=== PATIENT | female | born 1965 | race Caucasian/White ===

== ENCOUNTER 2017-04-25 08:32 | Emergency (ER) | payer BC ==
[2017-04-25 08:38] VITALS: TEMP 98.1
--- NOTE | 2017-04-25 08:53 | ED ---
General Adult HPI - General Chief complaint: Abdominal Pain Stated complaint: ABDOMINAL PAIN, VOMITING, DIARRHEA Time Seen by Provider: 04/25/17 08:40 Source: patient, RN notes reviewed Mode of arrival: ambulatory Limitations: no limitations - History of Present Illness Initial comments: 51 yo female presents to the emergency department with a chief complaint nausea vomiting and diarrhea. Patient has been sick since yesterday. Patient states that this started after lunch yesterday. Patient states she has a steady pain in her lower abdomen. Patient states that her pain was so that'll cause her to vomit. Patient states she took twice this morning. Patient denies any changes in bladder habits. Patient states that she just does not know is going on. She denies any abdominal surgeries signs of infection. The patient was concerned due to her symptoms so she thought that she should be evaluated. Patient denies any recent fever, chills, shortness of breath, chest pain, back pain, numbness or tingling, dysuria or hematuria, constipation, headaches or visual changes, or any other current symptoms. - Related Data Home Medications Medication Instructions Recorded Confirmed Cetirizine HCl [Zyrtec] 10 mg PO DAILY 04/25/17 04/25/17 Previous Rx's Medication Instructions Recorded Hydrocodone/Acetaminophen [[place] 1 each PO Q6HR PRN #20 tab 04/25/17 5-325] Ketorolac [Toradol] 10 mg PO Q6HR #20 tab 04/25/17 Ondansetron Odt [Zofran ODT] 4 mg PO Q8HR PRN #20 tab 04/25/17 Tamsulosin [Flomax] 0.4 mg PO DAILY #5 cap 04/25/17 Allergies Allergy/AdvReac Type Severity Reaction Status Date / Time No Known Allergies Allergy Verified 04/25/17 09:14 Review of Systems ROS Statement: Those systems with pertinent positive or pertinent negative responses have been documented in the HPI. ROS Other: All systems not noted in ROS Statement are negative. Past Medical History Past Medical History: No Reported History History of Any Multi-Drug Resistant Organisms: None Reported Past Surgical History: Section Past Psychological History: No Psychological Hx Reported Smoking Status: Never smoker Past Alcohol Use History: None Reported Past Drug Use History: None Reported General Exam - General Exam Comments Initial Comments: General: The patient is awake and alert, in mild distress, and does not appear acutely ill. Eye: Pupils are equal, round and reactive to light, extra-ocular movements are intact; there is normal conjunctiva bilaterally. No signs of icterus. Ears, nose, mouth and throat: There are moist mucous membranes and no oral lesions. Neck: The neck is supple, there is no tenderness. Cardiovascular: There is a regular rate and rhythm. No murmur, rub or gallop is appreciated. Respiratory: Lungs are clear to auscultation, respirations are non-labored, breath sounds are equal. No wheezes, stridor, rales, or rhonchi. Gastrointestinal: Soft, non-distended, non-tender abdomen without masses or organomegaly noted. There is no rebound or guarding present. No CVA tenderness. Bowel sounds are unremarkable. Back: There is no tenderness to palpation in the midline. There is no obvious deformity. No rashes noted. Musculoskeletal: Normal ROM, no tenderness, There is no pedal edema. There is no calf tenderness or swelling. Sensation intact. Pulses equal bilaterally 2+. Neurological: CN II-XII intact, There are no obvious motor or sensory deficits. Coordination appears grossly intact. Speech is normal. Skin: Skin is warm and dry and no rashes or lesions are noted. Psychiatric: Cooperative, appropriate mood & affect, normal judgment. Limitations: no limitations Course Vital Signs 04/25/17 04/25/17 04/25/17 08:36 08:50 09:29 Temperature 98.1 F Pulse Rate 97 Respiratory 24 Rate Blood Pressure 231/92 200/86 O2 Sat by Pulse 100 Oximetry 04/25/17 04/25/17 04/25/17 10:21 11:20 11:47 Temperature Pulse Rate 96 110 H 89 Respiratory 16 16 16 Rate Blood Pressure 197/84 224/100 178/79 O2 Sat by Pulse 98 99 99 Oximetry Medical Decision Making - Medical Decision Making 51-year-old female presents emergency room chief complaint abdominal pain nausea vomiting and diarrhea. At this time lab work and imaging has been reviewed. Patient does appear to have a bright ureteral calculus. It is appear to be some obstruction of this. Patient is stable. Lactic is elevated but this is most likely due to the nausea vomiting and the patient. Otherwise she does appear to be hydrated. At this time we did give her pain medication. At this time we discussed close follow-up with urology. We did discuss return parameters we discussed this could get worse and not better and she may need to be admitted. We did discuss all the patient's questions. She stated that she understood and she is in agreement plan. She'll be discharged. - Lab Data Result diagrams: 04/25/17 09:12 04/25/17 09:12 Lab Results 04/25/17 04/25/17 04/25/17 Range/Units 09:12 09:12 09:12 WBC 5.8 (3.8-10.6) k/uL RBC 4.93 (3.80-5.40) m/uL Hgb 14.6 (11.4-16.0) gm/dL Hct 44.5 (34.0-46.0) % MCV 90.3 (80.0-100.0) fL MCH 29.6 (25.0-35.0) pg MCHC 32.8 (31.0-37.0) g/dL RDW 13.4 (11.5-15.5) % Plt Count 165 (150-450) k/uL Neutrophils % 79 % Lymphocytes % 15 % Monocytes % 5 % Eosinophils % 1 % Basophils % 1 % Neutrophils # 4.6 (1.3-7.7) k/uL Lymphocytes # 0.8 L (1.0-4.8) k/uL Monocytes # 0.3 (0-1.0) k/uL Eosinophils # 0.1 (0-0.7) k/uL Basophils # 0.0 (0-0.2) k/uL Sodium 144 (137-145) mmol/L Potassium 3.8 (3.5-5.1) mmol/L Chloride 109 H (98-107) mmol/L Carbon Dioxide 22 (22-30) mmol/L Anion Gap 13 mmol/L BUN 13 (7-17) mg/dL Creatinine 0.98 (0.52-1.04) mg/dL Est GFR (MDRD) Af Amer >60 (>60 ml/min/1.73 sqM) Est GFR (MDRD) Non-Af 60 (>60 ml/min/1.73 sqM) Glucose 155 H (74-99) mg/dL Plasma Lactic Acid Ru 2.3 H* (0.7-2.0) mmol/L Calcium 9.3 (8.4-10.2) mg/dL Total Bilirubin 0.8 (0.2-1.3) mg/dL AST 22 (14-36) U/L ALT 28 (9-52) U/L Alkaline Phosphatase 82 (38-126) U/L Total Protein 7.6 (6.3-8.2) g/dL Albumin 4.3 (3.5-5.0) g/dL Amylase 43 (30-110) U/L Lipase 68 (23-300) U/L Urine Color Urine Appearance (Clear) Urine pH (5.0-8.0) Ur Specific [place] (1.001-1.035) Urine Protein (Negative) Urine Glucose (UA) (Negative) Urine Ketones (Negative) Urine Blood (Negative) Urine Nitrite (Negative) Urine Bilirubin (Negative) Urine Urobilinogen (<2.0) mg/dL Ur Leukocyte Esterase (Negative) Urine RBC (0-5) /hpf Urine WBC (0-5) /hpf Ur Squamous Epith Cells (0-4) /hpf Urine Mucus (None) /hpf 04/25/17 Range/Units 10:15 WBC (3.8-10.6) k/uL RBC (3.80-5.40) m/uL Hgb (11.4-16.0) gm/dL Hct (34.0-46.0) % MCV (80.0-100.0) fL MCH (25.0-35.0) pg MCHC (31.0-37.0) g/dL RDW (11.5-15.5) % Plt Count (150-450) k/uL Neutrophils % % Lymphocytes % % Monocytes % % Eosinophils % % Basophils % % Neutrophils # (1.3-7.7) k/uL Lymphocytes # (1.0-4.8) k/uL Monocytes # (0-1.0) k/uL Eosinophils # (0-0.7) k/uL Basophils # (0-0.2) k/uL Sodium (137-145) mmol/L Potassium (3.5-5.1) mmol/L Chloride (98-107) mmol/L Carbon Dioxide (22-30) mmol/L Anion Gap mmol/L BUN (7-17) mg/dL Creatinine (0.52-1.04) mg/dL Est GFR (MDRD) Af Amer (>60 ml/min/1.73 sqM) Est GFR (MDRD) Non-Af (>60 ml/min/1.73 sqM) Glucose (74-99) mg/dL Plasma Lactic Acid Ru (0.7-2.0) mmol/L Calcium (8.4-10.2) mg/dL Total Bilirubin (0.2-1.3) mg/dL AST (14-36) U/L ALT (9-52) U/L Alkaline Phosphatase (38-126) U/L Total Protein (6.3-8.2) g/dL Albumin (3.5-5.0) g/dL Amylase (30-110) U/L Lipase (23-300) U/L Urine Color Yellow Urine Appearance Clear (Clear) Urine pH 7.5 (5.0-8.0) Ur Specific [place] 1.048 H (1.001-1.035) Urine Protein Trace H (Negative) Urine Glucose (UA) Trace H (Negative) Urine Ketones Negative (Negative) Urine Blood Moderate H (Negative) Urine Nitrite Negative (Negative) Urine Bilirubin Negative (Negative) Urine Urobilinogen <2.0 (<2.0) mg/dL Ur Leukocyte Esterase Trace H (Negative) Urine RBC 163 H (0-5) /hpf Urine WBC 2 (0-5) /hpf Ur Squamous Epith Cells 9 H (0-4) /hpf Urine Mucus Rare H (None) /hpf - Radiology Data Radiology results: report reviewed, image reviewed Disposition Clinical Impression: Ureteral calculus Disposition: HOME SELF-CARE Condition: Stable Instructions: Kidney Stones (ED) Additional Instructions: Please use medication as discussed. Please follow up with family doctor if symptoms have not improved over the next two days. Please return to the emergency room if your symptoms increase or worsen or for any other concerns. Prescriptions: Hydrocodone/Acetaminophen [[place] 5-325] 1 each PO Q6HR PRN #20 tab PRN Reason: Pain Ketorolac [Toradol] 10 mg PO Q6HR #20 tab Ondansetron Odt [Zofran ODT] 4 mg PO Q8HR PRN #20 tab PRN Reason: Nausea Tamsulosin [Flomax] 0.4 mg PO DAILY #5 cap Referrals: Naresh Mcgowan MD [STAFF PHYSICIAN] - 1-2 days Time of Disposition: 12:16
[2017-04-25] MEDS ORDERED: METOCLOPRAMIDE 5 MG/ML 2 ML VIAL IVP STA (08:54)
[2017-04-25] MEDS ORDERED: DICYCLOMINE 10 MG/ML 2 ML AMP IM STA (08:54)
[2017-04-25] MEDS ORDERED: RX INFO: IV CONTRAST WAS GIVEN 1 EACH MISC MISCELLANE PRN (08:54)
[2017-04-25] MEDS ORDERED: HYDROmorphone 1 MG/ML 1 ML SYRINGE IVP STA ×3 (08:54→11:22)
[2017-04-25] MEDS ORDERED: SODIUM CHLORIDE 0.9% 1,000 ML IV STA (08:54)
[2017-04-25 09:33] LABS: Basophils % (A) 1 %; CH 29.7; CHCM 33.1; Eosinophils # (A) 0.1 k/uL (0-0.7); Eosinophils % (A) 1 %; HCT 44.5 % (34.0-46.0); HDW 2.57; HGB 14.6 gm/dL (11.4-16.0); Luc # (Auto) 0.05; Luc % (Auto) 1; Lymphocytes # (A) 0.8 k/uL (1.0-4.8); Lymphocytes % (A) 15 %; MCH 29.6 pg (25.0-35.0); MCHC 32.8 g/dL (31.0-37.0); MCV 90.3 fL (80.0-100.0); Mean Platelet Volume 8.2; Monocytes # (A) 0.3 k/uL (0-1.0); Monocytes % (A) 5 %; Neutrophils # (A) 4.6 k/uL (1.3-7.7); Neutrophils % (A) 79 %; RBC 4.93 m/uL (3.80-5.40); RDW 13.4 % (11.5-15.5); WBC 5.8 k/uL (3.8-10.6); WBC (Perox) 5.86
[2017-04-25 09:42] LABS: Anion Gap 13 mmol/L; Blood Urea Nitrogen 13 mg/dL (7-17); Carbon Dioxide 22 mmol/L (22-30); Chloride 109 mmol/L (98-107); Glucose 155 mg/dL (74-99); Potassium 3.8 mmol/L (3.5-5.1); Sodium 144 mmol/L (137-145)
[2017-04-25 09:43] LABS: ALT 28 U/L (9-52); AST 22 U/L (14-36); Alkaline Phosphatase 82 U/L (38-126); Amylase 43 U/L (30-110); Calcium 9.3 mg/dL (8.4-10.2); Non-African American GFR(MDRD) 60 (>60 ml/min/1.73 sqM); Total Bilirubin 0.8 mg/dL (0.2-1.3); Total Protein 7.6 g/dL (6.3-8.2)
[2017-04-25 10:23] VITALS: RESP 16
--- NOTE | 2017-04-25 10:27 | CT ---
EXAMINATION TYPE: CT abdomen pelvis w con DATE OF EXAM: 04/25/2017 COMPARISON: NONE HISTORY: 51-year-old female complains of RLQ pain, nausea, vomiting, and diarrhea. TECHNIQUE: Contiguous axial scanning of the abdomen and pelvis following administration of 100 ml Omn ipaque 300 IV contrast. Delayed images through the kidneys and coronal/sagittal reconstructions perf ormed. CT DLP: 1468.8 mGycm Automated exposure control for dose reduction was used. FINDINGS: Heart is normal size without pericardial effusion. Nonspecific 4 mm left basilar pulmonary nodule. No pleural effusion. Small hiatal hernia. Small amount of focal fat along the anterior falciform ligament and a 1.8 cm lobulated hypodense lesi on in the central inferior right liver lobe most suggestive of a cyst. The portal venous system appea rs patent. No biliary ductal dilatation. Adrenal glands, left kidney, spleen, and pancreas appear within normal limits. There is mild right-sided hydronephrosis with delayed excretion of contrast and mild hydroureter and a 5 mm calculus at the distal right ureter just proximal to the UVJ. Mild surrounding tracking edema and inflammation along the right ureter. No dilated small bowel, free fluid, or free air. No mesenteric or retroperitoneal adenopathy. Normal appendix. No significant stool burden. Minimal diverticular change along the proximal sigmoid. No pericolonic inflammatory change. Bladder nondistended. There is a intramural and subserosal focal fibroid along the anterior uterine body measuring 2.2 cm. Uterus is anteverted. Both ovaries are visualized. No abnormal fluid collection in the pelvis or pelv ic lymphadenopathy. Bones: Mild degenerative disc disease L5-S1. No osseous destructive process. IMPRESSION: 1. A 5 MM DISTAL RIGHT URETERAL CALCULUS NEAR THE UVJ WITH MILD HYDRONEPHROSIS. SIGNIFICANT OBSTRUCTI VE UROPATHY IS SUGGESTED GIVEN THE LACK OF CONTRAST EXCRETION FROM THE RIGHT KIDNEY ON THE DELAYED IM AGES. 2. MINIMAL DIVERTICULOSIS ALONG THE PROXIMAL SIGMOID COLON. 3. A 2.2 CM ANTERIOR UTERINE FIBROID.
[2017-04-25] MEDS ORDERED: KETOROLAC 30 MG/ML 1 ML VIAL IVP STA (10:32)
[2017-04-25 10:59] LABS: Appearance,Urine Clear (Clear); Bilirubin,Urine Negative (Negative); Glucose,Urine (UA) Trace (Negative); Ketones,Urine Negative (Negative); Leukocyte Esterase,Urine Trace (Negative); Mucus,Urine Rare /hpf; Nitrite,Urine Negative (Negative); PH, Urine 7.5 (5.0-8.0); Particle Count 1643; Protein,Urine Trace (Negative); RBC,Urine 163 /hpf (0-5); Specific Gravity,Urine 1.048 (1.001-1.035); Squamous Epithelial Cell,Urine 9 /hpf (0-4); UA Billing (MACRO vs. MICRO) MICRO; Urobilinogen,Urine <2.0 mg/dL (<2.0); WBC,Urine 2 /hpf (0-5)
[2017-04-25] MEDS ORDERED: ONDANSETRON 4 MG/2 ML VIAL IVP STA (11:22)
[2017-04-25 11:47] VITALS: BP 178/79; PULSE 89
== END 2017-04-25 12:17 | disposition home or self-care (01) ==
LOC: EC 08:32
DX: N20.1 Calculus of ureter (principal); Z79.899 Other long term (current) drug therapy
CPT/HCPCS: 99284 ×2; 96374 ×2; 96375 ×4; 96376 ×3; 96361 ×2; 96372 ×2; 36415; 80053; 82150; 83605; 83690; 85025; 81001; 87040; 87086; 74177; J0500; J2765; J2405; J1885; J1170; Q9967

== ENCOUNTER → 2017-04-26 | Outpatient (CLI) | payer BC ==
--- NOTE | 2017-04-26 10:11 | XR ---
EXAMINATION TYPE: XR abdomen 1V DATE OF EXAM: 04/26/2017 COMPARISON: 04/25/2017 HISTORY: Right-sided kidney stone TECHNIQUE: One view abdominal series FINDINGS: The osseous structures are intact. The bowel gas pattern is nonspecific. Lung bases are clear. There remains a calcification along the right hemipelvis which could be within the right UVJ or bladd er. Measures approximately 4 mm. No additional suspicious calcifications. IMPRESSION: 1. Right pelvic calcification likely near the right UVJ and corresponding to the CT abnormality.
== END | disposition home or self-care (01) ==
LOC: RADXRMAIN 09:51
PROVIDERS: ATTEND Urology
DX: N28.89 Other specified disorders of kidney and ureter (principal)
CPT/HCPCS: 74000

== ENCOUNTER 2019-07-22 09:16 | Day surgery (SDC) | payer BC ==
[2019-07-21 08:42] VITALS: BMI 35.5
[~2019-07-22 09:16] MED LIST: LACTATED RINGERS 1,000 ML IV SCH; LIDOCAINE 1% 20 ML VIAL (10MG/ML) FOR IV START INTRADERMA PRN
[2019-07-22 09:38] VITALS: TEMP 97.9
[2019-07-22] MEDS ORDERED: PROPOFOL 10 MG/ML 20 ML VIAL IV ONE (10:10)
--- NOTE | 2019-07-22 10:30 | P.PCN ---
Date of Procedure: 07/22/19 Procedure(s) Performed: BRIEF HISTORY: Patient is a 53-year-old pleasant female scheduled for an elective colonoscopy as a part of screening for colon rectal neoplasia. PROCEDURE PERFORMED: Colonoscopy. PREOPERATIVE DIAGNOSIS: Screening for colon cancer. IV sedation per Anesthesia. PROCEDURE: After informed consent was obtained, the patient, was brought into the endoscopy unit. IV sedation was administered by Anesthesia under continuous monitoring. Digital rectal examination was normal. Initially the Olympus CF-160 flexible video colonoscope was then inserted in the rectum, gradually advanced into the cecum without any difficulty. Careful examination was performed as the scope was gradually being withdrawn. Ileocecal valve and the appendiceal orifice were visualized and appeared normal. Prep was excellent. Mucosa of the cecum, ascending colon, transverse colon, descending colon, sigmoid colon, and rectum appeared normal. Retroflexion was performed in the rectum and no lesions were seen. The patient tolerated the procedure well. IMPRESSION: Normal-appearing colon from rectum to cecum with no emesis of colorectal neoplasia . RECOMMENDATIONS: Findings of this examination were discussed with the patient as well as a family. She was advised to have a repeat scanning colonoscopy in 10 years.
[2019-07-22 10:35] VITALS: RESP 16
[2019-07-22 10:46] VITALS: BP 141/74; PULSE 77
== END 2019-07-22 11:14 | disposition home or self-care (01) ==
LOC: ORWHC2ENDO 09:16
PROVIDERS: ATTEND Internal Medicine Gastroenterology
DX: Z12.11 Encounter for screening for malignant neoplasm of colon (principal); I10 Essential (primary) hypertension; Z79.899 Other long term (current) drug therapy; Z87.442 Personal history of urinary calculi
CPT/HCPCS: J2704; G0121

== ENCOUNTER → 2020-03-01 | Outpatient (CLI) | payer BC ==
--- NOTE | 2020-03-03 09:21 | MM ---
Reason for exam: screening (asymptomatic). Last mammogram was performed 1 year and 5 months ago. History: Patient is postmenopausal. Family history of breast cancer in maternal grandmother. Took hormonal contraceptives for 2 years. Physical Findings: A clinical breast exam by your physician is recommended on an annual basis and results should be correlated with mammographic findings. MG Screening Mammo w CAD Bilateral CC and MLO view(s) were taken. Prior study comparison: September 29, 2018, right breast MG work up mamm w CAD RT. September 29, 2018, bilateral MG screening mammo w CAD. There are scattered fibroglandular densities. No significant changes when compared with prior studies. ASSESSMENT: Benign, BI-RAD 2 RECOMMENDATION: Routine screening mammogram of both breasts in 6 months.
== END | disposition home or self-care (01) ==
LOC: RADMAMWWP 12:46
PROVIDERS: ATTEND Internal Medicine
DX: Z12.31 Encounter for screening mammogram for malignant neoplasm of breast (principal)
CPT/HCPCS: 77067

== ENCOUNTER → 2021-03-10 | Outpatient (CLI) | payer BC ==
--- NOTE | 2021-03-14 10:08 | MM ---
Reason for exam: screening (asymptomatic). Last mammogram was performed 1 year ago. History: Patient is postmenopausal. Family history of breast cancer in maternal grandmother. Took hormonal contraceptives for 2 years. Physical Findings: A clinical breast exam by your physician is recommended on an annual basis and results should be correlated with mammographic findings. MG Screening Mammo w CAD Bilateral CC and MLO view(s) were taken. Prior study comparison: March 01, 2020, bilateral MG screening mammo w CAD. September 29, 2018, right breast MG work up mamm w CAD RT. There are scattered fibroglandular densities. There is chronic nodularity in the right breast. There is no discrete abnormality. ASSESSMENT: Benign, BI-RAD 2 RECOMMENDATION: Routine screening mammogram of both breasts in 1 year.
== END | disposition home or self-care (01) ==
LOC: RADMAMWWP 08:24
PROVIDERS: ATTEND Internal Medicine
DX: Z12.31 Encounter for screening mammogram for malignant neoplasm of breast (principal); Z78.0 Asymptomatic menopausal state; Z80.3 Family history of malignant neoplasm of breast; Z79.3 Long term (current) use of hormonal contraceptives
CPT/HCPCS: 77067

== ENCOUNTER → 2021-08-14 | Outpatient (CLI) | payer BC ==
--- NOTE | 2021-08-14 13:55 | XR ---
EXAMINATION TYPE: XR cervical spine comp DATE OF EXAM: 08/14/2021 COMPARISON: None HISTORY: 55-year-old female M54.2, right-sided neck injury and arm pain since Mario. TECHNIQUE: 6 views FINDINGS: No space widening or prevertebral soft tissue swelling. Straightening of the normal cervical lordosis. There is preserved alignment of the cervical spine. No odontoid view. Scattered mild facet and uncovertebral joint arthropathy. On the right, changes contribute to mild bony neural foraminal narrowing in the mid cervical spine at C4-C5 and C5-C6 and on the left at C6-C7. IMPRESSION: Mild multilevel spondylotic changes. Straightening of the normal cervical lordosis could be positiona l or due to muscle spasm. No prevertebral soft tissue swelling or malalignment. Mild bony neuroforami nal narrowing as outlined above.
== END | disposition home or self-care (01) ==
LOC: RADXRMAIN 11:45
PROVIDERS: ATTEND Internal Medicine
DX: M47.812 Spondylosis without myelopathy or radiculopathy, cervical region (principal); M99.51 Intervertebral disc stenosis of neural canal of cervical region
CPT/HCPCS: 72050

== ENCOUNTER → 2021-09-30 | Outpatient (CLI) | payer BC ==
--- NOTE | 2021-09-30 17:38 | MR ---
EXAMINATION TYPE: MR cervical spine wo con DATE OF EXAM: 09/30/2021 COMPARISON: None HISTORY: Pain in Neck and right upper arm since Aug 2021. Multiplanar multiecho imaging of the cervical spine without contrast. Vertebral abnormal alignment. There is some degenerative disc space narrowing at C3-4 and C4-5. Cervi jaycee spinal cord has normal signal pattern. No edema. There are small posterior disc bulging at C4-5 a nd C5-6. Facet joints are intact. Brainstem is intact There is small posterior disc bulge at C5-6 without evident impingement on the spinal canal. Spinal c anal measures 7.5 mm at C5-6 which is the narrowest point. There is some encroachment on the right si de C5-6 neural foramen. IMPRESSION: Spondylotic changes. Mild posterior disc bulging seen at C4-5 and C5-6 without spinal stenosis. Disc bulging slightly more to the right side at C5-6 and this could be clinically significant in this sneha ent with right-sided symptoms.
== END | disposition home or self-care (01) ==
LOC: RADMRIMAIN 07:32
PROVIDERS: ATTEND Internal Medicine
DX: M47.812 Spondylosis without myelopathy or radiculopathy, cervical region (principal); M50.222 Other cervical disc displacement at C5-C6 level
CPT/HCPCS: 72141

== ENCOUNTER → 2022-03-13 | Outpatient (CLI) | payer BC ==
--- NOTE | 2022-03-14 14:00 | MM ---
Reason for Exam: Screening (asymptomatic). Last screening mammogram was performed 12 month(s) ago. Patient History: Menarche at age 9. First Full-Term at age 20. Postmenopausal. Patient has history of breast feeding. Patient used Hormonal Contraceptives for 2 years. Maternal grandmother had breast cancer at or over age 50. Risk Values: Radha 5 year model risk: 1.3%. NCI Lifetime model risk: 7.7%. Prior Study Comparison: 09/29/2018 Right Diagnostic Mammogram, [facility]. 03/01/2020 Bilateral Screening Mammogram, [facility]. 03/10/2021 Bilateral Screening Mammogram, [facility]. Tissue Density: The breast tissue is heterogeneously dense. This may lower the sensitivity of mammography. Findings: Analyzed By CAD. Focal asymmetry upper left MLO view. This finding is changed when compared with previous exams. Overall Assessment: Incomplete: need additional imaging evaluation, BI-RAD 0 Management: Diagnostic Mammogram of the left breast. A clinical breast exam by your physician is recommended on an annual basis and results should be correlated with mammographic findings. [facility] will attempt to contact patient to return for supplemental views. Electronically signed and approved by: Nando Valle M.D. Radiologis
== END | disposition home or self-care (01) ==
LOC: RADMAMWWP 10:50
PROVIDERS: ATTEND Internal Medicine
DX: Z12.31 Encounter for screening mammogram for malignant neoplasm of breast (principal); Z78.0 Asymptomatic menopausal state; Z80.3 Family history of malignant neoplasm of breast
CPT/HCPCS: 77067

== ENCOUNTER → 2022-03-19 | Outpatient (CLI) | payer BC ==
--- NOTE | 2022-03-19 08:07 | MM ---
Reason for Exam: Additional evaluation requested from abnormal screening. Last screening mammogram was performed less than 1 month ago. Patient History: Menarche at age 9. First Full-Term at age 20. Postmenopausal. Patient has history of breast feeding. Patient used Hormonal Contraceptives for 2 years. Maternal grandmother had breast cancer at or over age 50. Risk Values: Rad[place] 5 year model risk: 1.3%. NCI Lifetime model risk: 7.7%. Prior Study Comparison: 03/01/2020 Bilateral Screening Mammogram, [facility]. 03/10/2021 Bilateral Screening Mammogram, [facility]. 03/13/2022 Bilateral MG screening mammo w CAD, [facility]. Tissue Density: Left: The breast tissue is heterogeneously dense. This may lower the sensitivity of mammography. Findings: Analyzed By CAD. The asymmetry does not persist on spot compression views. No worrisome cluster microcalcifications. Overall Assessment: Negative, BI-RAD 1 Management: Screening Mammogram of both breasts in 1 year. A clinical breast exam by your physician is recommended on an annual basis and results should be correlated with mammographic findings. This exam should not preclude additional follow-up of suspicious palpable abnormalities. Results were given to the patient verbally at the time of exam. Electronically signed and approved by: Jaison Richard D.O.
== END | disposition home or self-care (01) ==
LOC: RADMAMWWP 07:38
PROVIDERS: ATTEND Internal Medicine
DX: R92.8 Other abnormal and inconclusive findings on diagnostic imaging of breast (principal); Z78.0 Asymptomatic menopausal state; Z80.3 Family history of malignant neoplasm of breast
CPT/HCPCS: 77065

== ENCOUNTER → 2023-03-14 | Outpatient (CLI) | payer BC ==
--- NOTE | 2023-03-14 19:49 | BD ---
EXAMINATION TYPE: Axial Bone Density DATE OF EXAM: 03/14/2023 CLINICAL HISTORY: 57 years old Female. ICD-10 CODE: Z12.31 N951 Height: 63.8 Weight: 222 FRAX RISK QUESTIONS: Glucocorticoids (More than 3mos): yes, for allergies (Ex: prednisone, prednisolone, methylprednisolone, dexamethasone, and hydrocortisone). RISK FACTORS HISTORY OF: Postmenopausal woman: yes, at age 51 yrs old Hyperparathyroidism: no Adrenal Insufficiency: no MEDICATIONS: Prednisone or other steroids: flonase, Additional Medications: bp meds, zyrtec, vit d Additional History: hypertension, allergies, D deficient, EXAM MEASUREMENTS: Bone mineral densitometry was performed using the [employer]. Bone mineral density as measured about the Lumbar spine is: ----- L1-L4(G/cm2): 1.181 T Score Values are as follows: ----- L1: -0.3 ----- L2: -0.5 ----- L3: 0.2 ----- L4: 0.4 ----- L1-L4: 0.0 Z Score Values are as follows: ----- L1: -0.4 ----- L2: -0.6 ----- L3: 0.1 ----- L4: 0.3 ----- L1-L4: -0.1 Bone mineral density is a baseline study for this patient. Bone mineral density about the R hip (g/cm2): 1.021 Bone mineral density about the L hip (g/cm2): 1.020 T Score values are as follows: -----R Neck: -0.5 -----L Neck: -1.1 -----R Total: 0.1 -----L Total: 0.1 Z Score values are as follows: -----R Neck: -0.1 -----L Neck: -0.7 -----R Total: 0.1 -----L Total: 0.1 Bone mineral density is the patients first dexa scan.....baseline study. FRAX%s: The graph provided illustrates a 9.8% chance for a major osteoporotic fx and a 0.6% chance fo r the hips probability for fx in 10 years time. IMPRESSION: Osteopenia (T Score between -2.5 and -1). There is slightly increased risk of fracture and the patient may be considered for treatment. Re-Screen 2-5 years. NOTE: T-SCORE=SD OF THE YOUNG ADULT MEAN.
--- NOTE | 2023-03-15 08:45 | MM ---
Reason for Exam: Screening (asymptomatic). Last screening mammogram was performed 12 month(s) ago. Patient History: Menarche at age 9. First Full-Term at age 20. Postmenopausal. Patient has history of breast feeding. Patient used Hormonal Contraceptives for 2 years. Maternal grandmother had breast cancer at or over age 50. Risk Values: Radha 5 year model risk: 1.3%. NCI Lifetime model risk: 7.6%. Prior Study Comparison: 03/10/2021 Bilateral Screening Mammogram, [facility]. 03/13/2022 Bilateral MG screening mammo w CAD, [facility]. 03/19/2022 Left MG work up mamm w CAD LT, [facility]. Tissue Density: There are scattered fibroglandular densities. Findings: Analyzed By CAD. There is no suspicious group of microcalcifications or new suspicious mass. Overall Assessment: Negative, BI-RAD 1 Management: Screening Mammogram of both breasts in [address] [facility] will attempt to contact patient to return for supplemental views and ultrasound if indicated. Patient should continue monthly self-breast exams. A clinical breast exam by your physician is recommended on an annual basis. This exam should not preclude additional follow-up of suspicious palpable abnormalities. Note on Radha scores and lifetime risk: 1. A Radha score greater than 3% is considered moderate risk. If this is the case, consider specialist referral to assess eligibility for a risk reducing agent. 2. If overall lifetime risk for the development of breast cancer is 20% or higher, the patient may qualify for future screening with alternating mammogram and breast MRI. Electronically signed and approved by: Melquiades Cisneros DO
== END | disposition home or self-care (01) ==
LOC: RADMAMWWP 07:23
PROVIDERS: ATTEND Internal Medicine
DX: Z12.31 Encounter for screening mammogram for malignant neoplasm of breast (principal); M85.88 Other specified disorders of bone density and structure, other site; Z78.0 Asymptomatic menopausal state; Z80.3 Family history of malignant neoplasm of breast
CPT/HCPCS: 77067; 77080

== ENCOUNTER → 2024-03-16 | Outpatient (CLI) | payer BC ==
--- NOTE | 2024-03-16 18:43 | MM ---
Reason for Exam: Screening (asymptomatic). Last screening mammogram was performed 12 month(s) ago. Patient History: Menarche at age 9. First Full-Term at age 20. Postmenopausal. Patient has history of breast feeding. Patient used Hormonal Contraceptives for 2 years. Maternal grandmother had breast cancer at or over age 50. Risk Values: Radha 5 year model risk: 1.4%. NCI Lifetime model risk: 7.4%. Prior Study Comparison: 03/13/2022 Bilateral MG screening mammo w CAD, [facility]. 03/19/2022 Left MG work up mamm w CAD LT, [facility]. 03/14/2023 Bilateral MG screening mammo w CAD, [facility]. Tissue Density: There are scattered areas of fibroglandular density. Findings: Analyzed By CAD. 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 Asymmetric density superior right MLO view is also unchanged. There is no suspicious group of microcalcifications or new suspicious mass in either breast. Overall Assessment: Benign, BI-RAD 2 Management: Screening Mammogram of both breasts in 1 year. . Patient should continue monthly self-breast exams. A clinical breast exam by your physician is recommended on an annual basis. This exam should not preclude additional follow-up of suspicious palpable abnormalities. Note on Radha scores and lifetime risk: 1. A Radha score greater than 3% is considered moderate risk. If this is the case, consider specialist referral to assess eligibility for a risk reducing agent. 2. If overall lifetime risk for the development of breast cancer is 20% or higher, the patient may qualify for future screening with alternating mammogram and breast MRI. Electronically signed and approved by: Chuckie Ingram M.D. Radiologist
== END | disposition home or self-care (01) ==
LOC: RADMAMWWP 07:06
PROVIDERS: ATTEND Internal Medicine
DX: Z12.31 Encounter for screening mammogram for malignant neoplasm of breast
CPT/HCPCS: 77063; 77067